=== PATIENT | female | born 2000 | race Two or more races ===

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

== ENCOUNTER 2020-01-09 07:57 | Inpatient (IN) | payer MEDICAID ==
[2020-01-09] MEDS ORDERED: PENICILLIN G POTASSIUM 5,000,000 UNIT in DEXTROSE 5%-WATER 100 ML IV ONE (08:27)
[2020-01-09] MEDS ORDERED: RINGERS SOLUTION,LACTATED 1,000 ML IV PRN (08:27)
[2020-01-09 08:38] LABS: APPEARANCE,URINE SLIGHTLY-CLOUDY; BILIRUBIN,URINE NEGATIVE (NEGATIVE); COLOR,URINE YELLOW; GLUCOSE, URINE NEGATIVE (NEGATIVE); KETONES,URINE NEGATIVE (NEGATIVE); LEUKOCYTE ESTERASE,URINE NEGATIVE (NEGATIVE); NITRITE,URINE NEGATIVE (NEGATIVE); PROTEIN,URINE 30 mg/dL (NEGATIVE); URINE SPECIFIC GRAVITY 1.025
[2020-01-09] MEDS ORDERED: PENICILLIN G-K 5 MILLION UNIT VIAL ONE (08:50)
[2020-01-09] MEDS ORDERED: OXYTOCIN/0.9 % SODIUM CHLORIDE 30 UNIT/500 ML RTUINJ ONE (08:51)
[2020-01-09] MEDS ORDERED: MISOPROSTOL 0.2 MG TABLET ONE (08:51)
[2020-01-09] MEDS ORDERED: LIDOCAINE 1% INJ-PF (10 MG/ML) 30 ML SDV ONE (08:51)
[2020-01-09 08:55] LABS: ABSOLUTE EOSINOPHILS # (AUTO) 0.1 10^3/uL (0.0-0.6); ABSOLUTE LYMPHOCYTES (AUTO) 2.2 10^3/uL (0.5-4.7); ABSOLUTE MONOCYTES (AUTO) 0.8 10^3/uL (0.1-1.4); ABSOLUTE NEUT (AUTO) 8.5 10^3/uL (1.7-8.2); BASOPHILS % (AUTO) 0.1 % (0-2); EOSINOPHILS % (AUTO) 0.5 % (0-6); HEMATOCRIT 32.2 % (36.0-47.0); HEMOGLOBIN 10.3 g/dL (12.0-15.5); LYMPHOCYTES % (AUTO) 19.1 % (13-45); MEAN CORPUSCULAR HEMOGLOBIN 23.9 pg (27.0-33.4); MEAN CORPUSCULAR VOLUME 75 fl (80-97); MONOCYTES % (AUTO) 7.1 % (3-13); PLATELET COUNT 215 10^3/uL (150-450); RED BLOOD COUNT 4.31 10^6/uL (3.72-5.28); RED CELL DISTRIBUTION WIDTH 15.6 % (11.5-14.0); SEGMENTED NEUTROPHILS % (AUTO) 73.2 % (42-78); TOTAL CELLS COUNTED % (AUTO) 100 %; WHITE BLOOD COUNT 11.6 10^3/uL (4.0-10.5)
[2020-01-09 09:00] LABS: URINE AMPHETAMINES SCREEN NEGATIVE; URINE BARBITURATES SCREEN NEGATIVE; URINE BENZODIAZEPINES SCREEN NEGATIVE; URINE COCAINE SCREEN NEGATIVE; URINE MARIJUANA (THC) SCREEN NEGATIVE; URINE METHADONE SCREEN NEGATIVE; URINE PHENCYCLIDINE SCREEN NEGATIVE
--- NOTE | 2020-01-09 09:01 | Admission Physical ---
Datetime Report Generated by CPN: 01/09/2020 09:01 CURRENT ADMISSION Chief Complaint: Uterine Contractions Indication for Induction: Not Applicable Admit Impression : Term, Intrauterine Admit Plan: Admit to Unit; Initiate Labor Protocol ALLERGIES Medication Allergies: No Medication Allergies: No Known Allergies (09/21/2018) Latex: No Latex Allergies Food Allergies: n/a Environmental Allergies: n/a OBSTETRICAL HISTORY EDC: 01/07/2020 00:00 : 2 Para: 1 Term: 1 : 0 SAB: 0 IAB: 0 Ectopic: 0 Livin Cesareans: 0 VBACs: 0 Multiple Births: 0 Gestational Diabetes: No Rh Sensitization: No Incompetent Cervix: No GOLDEN: No Infertility: No ART Treatment: No Uterine Anomaly: No IUGR: No Hx Previous C/S: No Macrosomia: No Hx Loss/Stillborn: No PIH: No Hx : No Placenta Previa/Abruption: No Depression/PP Depression: No PTL/PROM: No Post Hemorrhage: No Current Procedures: Ultrasound Obstetrical History Comments: G1- G2- current SEE RECORDS Alcohol: No Marijuana : No Cocaine: No Other Illicit Drugs: No Cigarettes: Never Smoker. [id number] MEDICAL HISTORY Diabetes: No Blood Transfusion: No Pulmonary Disease (Asthma, TB): No Breast Disease: No Hypertension: No Job Training Supervisor Surgery: No Heart Disease: No Hosp/Surgery: Yes Autoimmune Disorder: No Anesthetic Complications: No Kidney Disease: No Abnormal Pap Smear: No Neuro/Epilepsy: No Psychiatric Disorders: No Other Medical Diseases: No Hepatitis/Liver Disease: No Significant Family History: No Varicosities/Phlebitis: No Trauma/Violence : No Thyroid Dysfunction: No Medical History Comments: childbirth INFECTIOUS HISTORY Gonorrhea: No Genital Herpes: No Chlamydia: No Tuberculosis: No Syphilis: No Hepatitis: No HIV/AIDS Exposure: No Rash or Viral Illness: No HPV: No PHYSICAL EXAM General: Normal HEENT: Normal Neurologic: Normal Thyroid: Normal Heart: Normal Lungs: Normal Breast: Deferred Back: Normal Abdomen: Normal Genitourinary Exam: Normal Extremities: Normal DTRs: Normal Pelvic Type: Adequate FETUS A EGA: 40.2 PLANS FOR LABOR AND DELIVERY Labor and Delivery: None Pain Management: Epidural Feeding Preference: Breast Benefit of Breast Feed Discussed: Yes Circumcision: N/A INFORMED CONSENT Signature: with User ID: [email or web address]
[2020-01-09] MEDS ORDERED: FENTANYL/BUPIVACAINE/NS/PF 300 MCG/150 ML RTUINJ EPI ONE (09:16)
[2020-01-09] MEDS ORDERED: BUPIVACAINE HCL 0.25 % INJ/PF (2.5 MG/1 ML) 30 ML VIAL ONE (09:16)
[2020-01-09] MEDS ORDERED: EPHEDRINE SULFATE INJ 50 MG/1 ML AMPULE ONE (09:16)
[2020-01-09] MEDS ORDERED: PROMETHAZINE HCL INJ 25 MG/1 ML VIAL IV PRN (12:42)
[2020-01-09] MEDS ORDERED: DIPHENHYDRAMINE HCL 25 MG CAPSULE PO PRN (12:42)
[2020-01-09] MEDS ORDERED: ACETAMINOPHEN 650 MG SUPP.RECT PR PRN (12:42)
[2020-01-09] MEDS ORDERED: DIBUCAINE 1% OINTMENT 28 GM TP PRN (12:42)
[2020-01-09] MEDS ORDERED: MEASLES,MUMPS&RUBELLA VACC/PF 0.5 ML VIAL SUBCUT PRN (12:42)
[2020-01-09] MEDS ORDERED: PROMETHAZINE HCL 25 MG TABLET PO PRN (12:42)
[2020-01-09] MEDS ORDERED: ACETAMINOPHEN WITH CODEINE #3 TABLET PO PRN (12:42)
[2020-01-09] MEDS ORDERED: DIPH/PERTUSS(ACELL)/TETANUS VAC/PF 0.5 ML SYR (>=10YO) IM PRN (12:42)
[2020-01-09] MEDS ORDERED: OXYTOCIN/0.9 % SODIUM CHLORIDE 30 UNIT/500 ML RTUINJ IV PRN (12:42)
[2020-01-09] MEDS ORDERED: GLYCERIN/WITCH HAZEL LEAF 1 EACH MED..WIPE TP PRN (12:42)
[2020-01-09] MEDS ORDERED: BENZOCAINE/MENTHOL AEROSOL SPRAY 56 ML TOP PRN (12:42)
[2020-01-09] MEDS ORDERED: NA PHOS,M-B/NA PHOS,DI-BA (ADULT) 133 ML ENEMA PR PRN (12:42)
[2020-01-09] MEDS ORDERED: ZOLPIDEM TARTRATE 5 MG TABLET PO PRN (12:42)
[2020-01-09] MEDS ORDERED: MAGNESIUM HYDROXIDE SUSP 30 ML UDCUP PO PRN (12:42)
[2020-01-09] MEDS ORDERED: PROMETHAZINE HCL 25 MG SUPP.RECT PR PRN (12:42)
[2020-01-09] MEDS ORDERED: PSEUDOEPHEDRINE HCL 30 MG TABLET PO PRN (12:42)
[2020-01-09] MEDS ORDERED: IBUPROFEN 800 MG TABLET ONE (12:45)
[2020-01-09] MEDS ORDERED: PENICILLIN G POTASSIUM 2,500,000 UNIT in DEXTROSE 5%-WATER 50 ML IV SCH (13:00)
--- NOTE | 2020-01-09 14:26 | Delivery Summary ---
Del Sum A-C Datetime Report Generated by CPN: 01/09/2020 14:26 DELIVERY PERSONNEL DELIVERY PERSONNEL: [id number] Delivery Doctor:: Med Dodge MD Labor and Delivery Nurse:: Makayla Cummins RNlead cashier Nurse:: Yessenia Snow RN Instrumentation Controls Engineer/HANDCREW FOREMAN: Gisele Ross, ST MATERNAL INFORMATION Delivery Anesthesia: Epidural Medications After Delivery: Pitocin 30 Units in 500ml NS/D5W Delivery QBL: 100 Maternal Complications: None LABOR SUMMARY EDC: 01/07/2020 00:00 No. Babies in Womb: 1 Attempted: No Labor Anesthesia: Epidural LABOR INFORMATION Reason for Induction: Not Applicable Onset of Labor: 01/09/2020 05:00 Complete Dilatation: 01/09/2020 12:19 Oxytocin: N/A Group B Beta Strep: positive Antibiotics # of Doses: 1 Antibiotics Time of Last Dose: 0900 Name of Antibiotic Given: PCN Steroids Given: None Reason Steroids Not Administered: Not Applicable MEMBRANES Membranes Rupture Method: Spontaneous Rupture of Membranes: 01/09/2020 12:12 Length of Rupture (hr): 0.35 Amniotic Fluid Color: Clear Amniotic Fluid Amount: Moderate Amniotic Fluid Odor: None STAGES OF LABOR Stage 1 hr: 7 Stage 1 min: 19 Stage 2 hr: 0 Stage 2 min: 14 Stage 3 hr: 0 Stage 3 min: 4 Total Time in Labor hr: 7 Total Time in Labor min: 37 VAGINAL DELIVERY Episiotomy: None Laceration #1: None Laceration Extension #1: N/A Laceration Repair: Not Applicable Sponge Count Correct: Yes Sharps Count Correct: Yes CSECTION DELIVERY Primary Indication: N/A Secondary Indication: N/A CSection Incidence: N/A Labor: N/A Elective: N/A CSection Incision: N/A BABY A INFORMATION Infant Delivery Date/Time: 01/09/2020 12:33 Method of Delivery: Vaginal Nurse Controlled Delivery: No Born in Route : No : N/A Forceps: N/A Vacuum Extraction: N/A Shoulder Dystocia : No PRESENTATION/POSITION BABY A Presentation: Cephalic Cephalic Presentation: Vertex Vertex Position: Occipital Anterior Breech Presentation: N/A PLACENTA INFORMATION BABY A Placenta Delivery Time : 01/09/2020 12:37 Placenta Method of Delivery: Spontaneous Placenta Status: Delivered SCORES BABY A Heart Rate 1 min: >100 bpm Resp Effort 1 min: Good Cry Reflex Irritability 1 min: Cough or Sneeze or Pulls Away Muscle Tone 1 min: Active Motion Color 1 min: Blue/Pale Resuscitation Effort 1 min: Tactile Stimulation SCORE 1 MIN: 8 Heart Rate 5 min: >100 bpm Resp Effort 5 min: Good Cry Reflex Irritability 5 min: Cough or Sneeze or Pulls Away Muscle Tone 5 min: Active Motion Color 5 min: Body [place], Extremities Blue Resuscitation Effort 5 min: N/A SCORE 5 MIN: 9 INFANT INFORMATION BABY A Gestational Age at Delivery: 40.2 Gestational Status: Full Term- 39- 40.6 Weeks Outcome : Liveborn Condition : Stable Sex: Female IDENTIFICATION BABY A Verification Date/Time: 01/09/2020 13:31 ID Band Number: [id number] Mother's Name Verified: Yes RN Verifying : TRES Romero Additional Verifying Personnel: Bangclertin,RN WEIGHT/LENGTH BABY A Infant Birthweight (gm): 3735 Infant Weight (lb): 8 Weight (oz): 4 Length (in): 20.75 Infant Length (cm): 52.71 CORD INFORMATION BABY A No. Cord Vessels: 3 Nuchal Cord : N/A Nuchal Cord- Other: shoulder/body cord Cord Blood Taken: Yes-For Storage (Mom's Blood type +) Infant Suction: None ASSESSMENT BABY A Complications: None Physical Findings at Delivery: Within Normal Limits Infant Respirations: Appears Normal Skin to Skin: Yes Play Leader/ALS Called : No Care By: Sergio Snow RN Transferred To: Remains with Mother BABY B INFORMATION : N/A SIGNATURES Signature: with User ID: [email or web address]
--- NOTE | 2020-01-09 14:27 | Delivery Summary ---
Del Sum A-C Datetime Report Generated by CPN: 01/09/2020 14:27 DELIVERY PERSONNEL DELIVERY PERSONNEL: [id number] Delivery Doctor:: Med Dodge MD Labor and Delivery Nurse:: Makayla Cummins RNfixing carpenter Nurse:: Yessenia Snow RN Program Lead/WEB SITE DEVELOPER: Gisele Ross, ST MATERNAL INFORMATION Delivery Anesthesia: Epidural Medications After Delivery: Pitocin 30 Units in 500ml NS/D5W Delivery QBL: 100 Maternal Complications: None LABOR SUMMARY EDC: 01/07/2020 00:00 No. Babies in Womb: 1 Attempted: No Labor Anesthesia: Epidural LABOR INFORMATION Reason for Induction: Not Applicable Onset of Labor: 01/09/2020 05:00 Complete Dilatation: 01/09/2020 12:19 Oxytocin: N/A Group B Beta Strep: positive Antibiotics # of Doses: 1 Antibiotics Time of Last Dose: 0900 Name of Antibiotic Given: PCN Steroids Given: None Reason Steroids Not Administered: Not Applicable MEMBRANES Membranes Rupture Method: Spontaneous Rupture of Membranes: 01/09/2020 12:12 Length of Rupture (hr): 0.35 Amniotic Fluid Color: Clear Amniotic Fluid Amount: Moderate Amniotic Fluid Odor: None STAGES OF LABOR Stage 1 hr: 7 Stage 1 min: 19 Stage 2 hr: 0 Stage 2 min: 14 Stage 3 hr: 0 Stage 3 min: 4 Total Time in Labor hr: 7 Total Time in Labor min: 37 VAGINAL DELIVERY Episiotomy: None Laceration #1: None Laceration Extension #1: N/A Laceration Repair: Not Applicable Sponge Count Correct: Yes Sharps Count Correct: Yes CSECTION DELIVERY Primary Indication: N/A Secondary Indication: N/A CSection Incidence: N/A Labor: N/A Elective: N/A CSection Incision: N/A BABY A INFORMATION Infant Delivery Date/Time: 01/09/2020 12:33 Method of Delivery: Vaginal Nurse Controlled Delivery: No Born in Route : No : N/A Forceps: N/A Vacuum Extraction: N/A Shoulder Dystocia : No PRESENTATION/POSITION BABY A Presentation: Cephalic Cephalic Presentation: Vertex Vertex Position: Occipital Anterior Breech Presentation: N/A PLACENTA INFORMATION BABY A Placenta Delivery Time : 01/09/2020 12:37 Placenta Method of Delivery: Spontaneous Placenta Status: Delivered SCORES BABY A Heart Rate 1 min: >100 bpm Resp Effort 1 min: Good Cry Reflex Irritability 1 min: Cough or Sneeze or Pulls Away Muscle Tone 1 min: Active Motion Color 1 min: Blue/Pale Resuscitation Effort 1 min: Tactile Stimulation SCORE 1 MIN: 8 Heart Rate 5 min: >100 bpm Resp Effort 5 min: Good Cry Reflex Irritability 5 min: Cough or Sneeze or Pulls Away Muscle Tone 5 min: Active Motion Color 5 min: Body [place], Extremities Blue Resuscitation Effort 5 min: N/A SCORE 5 MIN: 9 INFANT INFORMATION BABY A Gestational Age at Delivery: 40.2 Gestational Status: Full Term- 39- 40.6 Weeks Outcome : Liveborn Condition : Stable Sex: Female IDENTIFICATION BABY A Verification Date/Time: 01/09/2020 13:31 ID Band Number: [id number] Mother's Name Verified: Yes RN Verifying : TRES Romero Additional Verifying Personnel: Mister Bucks Pet Food Companyrtin,RN WEIGHT/LENGTH BABY A Infant Birthweight (gm): 3735 Infant Weight (lb): 8 Weight (oz): 4 Length (in): 20.75 Infant Length (cm): 52.71 CORD INFORMATION BABY A No. Cord Vessels: 3 Nuchal Cord : N/A Nuchal Cord- Other: shoulder/body cord Cord Blood Taken: Yes-For Storage (Mom's Blood type +) Infant Suction: None ASSESSMENT BABY A Complications: None Physical Findings at Delivery: Within Normal Limits Infant Respirations: Appears Normal Skin to Skin: Yes Flower Cutter/ALS Called : No Care By: Sergio Snow RN Transferred To: Remains with Mother BABY B INFORMATION : N/A SIGNATURES Signature: with User ID: [email or web address]
[2020-01-09] MEDS: IBUPROFEN 800 MG TABLET PO SCH ×2 (14:30→22:46)
[2020-01-09] MEDS: DOCUSATE SODIUM 100 MG CAPSULE PO SCH (17:35)
[2020-01-09] MEDS: FERROUS SULFATE 325 MG TABLET PO SCH (17:35)
[2020-01-09] MEDS: FAMOTIDINE 20 MG TABLET PO SCH (22:46)
[2020-01-10] MEDS: IBUPROFEN 800 MG TABLET PO SCH ×3 (05:17→22:13)
[2020-01-10 07:39] LABS: HEMOGLOBIN 9.8 g/dL (12.0-15.5); MEAN CORPUSCULAR HEMOGLOBIN 24.4 pg (27.0-33.4); MEAN CORPUSCULAR HGB CONC 32.7 g/dL (32.0-36.0); MEAN CORPUSCULAR VOLUME 75 fl (80-97); PLATELET COUNT 187 10^3/uL (150-450); RED BLOOD COUNT 4.02 10^6/uL (3.72-5.28); RED CELL DISTRIBUTION WIDTH 15.5 % (11.5-14.0); WHITE BLOOD COUNT 12.6 10^3/uL (4.0-10.5)
[2020-01-10] MEDS: SENNOSIDES/DOCUSATE 8.6-50 MG 1 EACH TABLET PO SCH (09:44)
[2020-01-10] MEDS: PRENATAL VITAMIN W DHA CAPSULE PO SCH (09:44)
[2020-01-10] MEDS: DOCUSATE SODIUM 100 MG CAPSULE PO SCH ×2 (09:44→17:40)
[2020-01-10] MEDS: FAMOTIDINE 20 MG TABLET PO SCH ×2 (09:44→22:13)
[2020-01-10] MEDS: FERROUS SULFATE 325 MG TABLET PO SCH ×2 (09:44→17:40)
--- NOTE | 2020-01-10 09:57 | PDOC PROGRESS REPORT ---
Subjective-OB Progress Note for:: 01/10/20 - PP Day #1, doing well, UOB, voiding Physical Exam (OB) Vital Signs: Temp Pulse Resp BP Pulse Ox 98.1 F 57 L 16 112/53 L 98 01/09/20 20:21 01/09/20 20:21 01/09/20 20:21 01/09/20 20:21 01/09/20 20:21 Intake & Output 01/09/20 01/10/20 01/11/20 06:59 06:59 06:59 Intake Total 240 Balance 240 Weight 116.2 kg - General General Appearance: Appears well, Alert - PIH/Pre-Eclampsia Headache: Absent Visual Changes: No - Lochia Lochia Amount: Scant < 10 ml Lochia Color: Rubra/Red - Abdomen Description: Soft Hernia Present: No Fundal Description: Firm, Midline Fundal Height: u/3 - u/4 - Respiratory Respiratory Status: No respiratory distress - Abdominal Distension: No distension Tenderness: Nontender - Genitourinary Genitourinary Note: voiding - Extremities Upper extremity: Normal inspection Lower extremities: Normal inspection - Neurological Cognition: Normal Orientation: AAOx4 - Psychological Associated symptoms: Normal affect, Normal mood - Skin Skin Temperature: Warm Skin Moisture: Dry Objective-Diagnostic Laboratory: 01/10/20 07:21 01/09/20 01/10/20 08:43 07:21 WBC 12.6 H RBC 4.02 Hgb 9.8 L Hct 30.0 L MCV 75 L MCH 24.4 L MCHC 32.7 RDW 15.5 H Plt Count 187 Blood Type A POSITIVE Antibody Screen NEGATIVE Assessment and Plan(PN) - Assessment and Plan (1) Anemia, Is this a current diagnosis for this admission?: Yes (2) Chlamydia infection affecting in third trimester Is this a current diagnosis for this admission?: Yes (3) (normal spontaneous vaginal delivery) Is this a current diagnosis for this admission?: Yes Plan:: ambulation encouraged, Routine PP orders - Time Spent with Patient Time with patient: Less than 15 minutes Medications reviewed and adjusted accordingly: Yes - Disposition Anticipated Discharge: Home Within: within 24 hours
[2020-01-11] MEDS: IBUPROFEN 800 MG TABLET PO SCH (06:07)
[2020-01-11 07:23] VITALS: BP 130/66
[2020-01-11] MEDS: PRENATAL VITAMIN W DHA CAPSULE PO SCH (09:48)
[2020-01-11] MEDS: SENNOSIDES/DOCUSATE 8.6-50 MG 1 EACH TABLET PO SCH (09:48)
[2020-01-11] MEDS: FERROUS SULFATE 325 MG TABLET PO SCH (09:48)
[2020-01-11] MEDS: DOCUSATE SODIUM 100 MG CAPSULE PO SCH (09:48)
[2020-01-11] MEDS: FAMOTIDINE 20 MG TABLET PO SCH (09:48)
--- NOTE | 2020-01-11 10:09 | PDOC DISCHARGE SUMMARY ---
Impression - Admit/DC Date/PCP Admission Date/Primary Care Provider: 01/09/20 08:31 NIA SWENSON MD Discharge Date: 01/11/20 - PP day #2, doing well, breast feeding, A+, Rubella immune, hx +chlamydia w/ negative LUZMARIA at delivery. - Discharge Diagnosis (1) Anemia, Is this a current diagnosis for this admission?: Yes (2) Chlamydia infection affecting in third trimester Is this a current diagnosis for this admission?: Yes (3) (normal spontaneous vaginal delivery) Is this a current diagnosis for this admission?: Yes - Additional Information Resuscitation Status: Full Code Discharge Diet: As Tolerated, Regular Discharge Activity: Activity As Tolerated, Balance Activity w/Rest, No Lifting Over 10 Pounds, Pelvic Rest, No tub bath Referrals: NIA SWENSON MD [Primary Care Provider] - Prescriptions: Ibuprofen [Motrin 800 mg Tablet] 800 mg PO Q8 #60 tablet Home Medications: Pnv No.95/Ferrous Fum/Folic AC [ Vitamins Tablet] 1 tab PO DAILY 04/27/18 Ibuprofen [Motrin 800 mg Tablet] 800 mg PO Q8 #60 tablet 01/11/20 HPI Reason(s) for Admission: Onset of Labor Procedures: Ultrasound Intrapartum Procedure(s): Spontaneous Vaginal Delivery Results Laboratory Results: WBC 12.6 10^3/uL (4.0-10.5) H 01/10/20 07:21 RBC 4.02 10^6/uL (3.72-5.28) 01/10/20 07:21 Hgb 9.8 g/dL (12.0-15.5) L 01/10/20 07:21 Hct 30.0 % (36.0-47.0) L 01/10/20 07:21 MCV 75 fl (80-97) L 01/10/20 07:21 MCH 24.4 pg (27.0-33.4) L 01/10/20 07:21 MCHC 32.7 g/dL (32.0-36.0) 01/10/20 07:21 RDW 15.5 % (11.5-14.0) H 01/10/20 07:21 Plt Count 187 10^3/uL (150-450) 01/10/20 07:21 Lymph % (Auto) 19.1 % (13-45) 01/09/20 08:43 [place] % (Auto) 7.1 % (3-13) 01/09/20 08:43 Eos % (Auto) 0.5 % (0-6) 01/09/20 08:43 Baso % (Auto) 0.1 % (0-2) 01/09/20 08:43 Absolute Neuts (auto) 8.5 10^3/uL (1.7-8.2) H 01/09/20 08:43 Absolute Lymphs (auto) 2.2 10^3/uL (0.5-4.7) 01/09/20 08:43 Absolute Monos (auto) 0.8 10^3/uL (0.1-1.4) 01/09/20 08:43 Absolute Eos (auto) 0.1 10^3/uL (0.0-0.6) 01/09/20 08:43 Absolute Basos (auto) 0.0 10^3/uL (0.0-0.2) 01/09/20 08:43 Seg Neutrophils % 73.2 % (42-78) 01/09/20 08:43 Urine Color YELLOW 01/09/20 08:30 Urine Appearance SLIGHTLY-CLOUDY 01/09/20 08:30 Urine pH 5.0 (5.0-9.0) 01/09/20 08:30 Ur Specific [place] 1.025 01/09/20 08:30 Urine Protein 30 mg/dL (NEGATIVE) H 01/09/20 08:30 Urine Glucose (UA) NEGATIVE mg/dL (NEGATIVE) 01/09/20 08:30 Urine Ketones NEGATIVE mg/dL (NEGATIVE) 01/09/20 08:30 Urine Blood NEGATIVE (NEGATIVE) 01/09/20 08:30 Urine Nitrite NEGATIVE (NEGATIVE) 01/09/20 08:30 Urine Bilirubin NEGATIVE (NEGATIVE) 01/09/20 08:30 Urine Urobilinogen 2.0 mg/dL (<2.0) H 01/09/20 08:30 Ur Leukocyte Esterase NEGATIVE (NEGATIVE) 01/09/20 08:30 Urine Ascorbic Acid NEGATIVE (NEGATIVE) 01/09/20 08:30 Urine Opiates Screen NEGATIVE 01/09/20 08:30 Urine Methadone Screen NEGATIVE 01/09/20 08:30 Ur Barbiturates Screen NEGATIVE 01/09/20 08:30 Ur Phencyclidine Scrn NEGATIVE 01/09/20 08:30 Ur Amphetamines Screen NEGATIVE 01/09/20 08:30 U Benzodiazepines Scrn NEGATIVE 01/09/20 08:30 Urine Cocaine Screen NEGATIVE 01/09/20 08:30 U Marijuana (THC) Screen NEGATIVE 01/09/20 08:30 Blood Type A POSITIVE 01/09/20 08:43 Antibody Screen NEGATIVE 01/09/20 08:43 Plan Plan of Treatment: d/c home, f/up with [facility] in 4 wks for PP check Time Spent: Less than 30 Minutes
== END 2020-01-11 13:06 | disposition home or self-care (01) | DRG 807 ==
LOC: LC 07:57 → LR 08:31 → 2S 15:00
PROVIDERS: ADMIT Obstetrics & Gynecology Gynecology; ATTEND Obstetrics & Gynecology Gynecology
PROC: 10E0XZZ Delivery of Products of Conception, External Approach (ICD-10-PCS; principal; 2020-01-09)
DX: O99.824 Streptococcus B carrier state complicating childbirth (principal); Z37.0 Single live birth; O69.2XX0 Labor and delivery complicated by other cord entanglement, with compression, not applicable or unspecified; Z3A.40 40 weeks gestation of pregnancy
CPT/HCPCS: 1967; 36415; 80307; 81005; 85025; 85027; 86592; 86850; 86900; 86901; 94760; J2540; J2590; J3010; J3490; J7060